=== PATIENT | female | born 1990 | race Two or more races ===

== ENCOUNTER 2017-08-13 09:56 | Inpatient (IN) | payer MEDICAID ==
[~2017-08-13] VITALS: Ht 160 cm; Wt 65.8 kg
[2017-08-13] MEDS ORDERED: IV NS 0.9% 1,000 ML BAG IV ONE (10:30)
[2017-08-13] MEDS ORDERED: VANCOMYCIN 1 GM in IV D5W 250 ML IV ONE ×2 (10:30→16:30)
--- NOTE | 2017-08-13 11:00 | NUR ---
PT CAME IN FOR NECK ABSCESS FROM SELF ADMINISTERED DRUG USE. NOTED ANXIOUS. SEEN BY MD FOR EVAL. SAFETY AND COMFORT MEASURES PROVIDED. WILL MONITOR.
[2017-08-13 11:15] LABS: BASOPHILS # (AUTO) 0.2 /CMM (0.0-0.2); BASOPHILS % (AUTO) 1.9 % (0.0-2.0); EOSINOPHILS % (AUTO) 3.2 % (0.0-6.0); HEMATOCRIT 42 % (33-45); HEMOGLOBIN 14.3 g/dL (11.5-14.8); LYMPHOCYTES # (AUTO) 2.3 /CMM (0.8-4.8); LYMPHOCYTES % (AUTO) 21.5 % (20.0-44.0); MEAN CORPUSCULAR HGB CONC 34 g/dl (31.0-36.0); MEAN CORPUSCULAR VOLUME 87 fL (82-100); MONOCYTES # (AUTO) 0.5 /CMM (0.1-1.30); MONOCYTES % (AUTO) 4.9 % (2.0-12.0); NEUTROPHILS # (AUTO) 7.4 /CMM (1.8-8.9); NEUTROPHILS % (AUTO) 68.5 % (43.0-81.0); PLATELET COUNT (AUTO) 396 /CMM (150-450); RDW COEFFICIENT OF VARIATION 12.3 (11.5-15.0); RED BLOOD CELL COUNT(AUTO) 4.88 MIL/uL (4.0-5.2); WHITE BLOOD COUNT (AUTO) 10.7 K/uL (4.3-11.0)
[2017-08-13 11:24] LABS: CALCIUM, SERUM 8.5 mg/dL (8.5-10.1); CREATININE 0.7 mg/dL (0.6-1.3)
--- NOTE | 2017-08-13 11:30 | NUR ---
UNABLE TO ESTABLISH IV ACCESS. AWARE.
[2017-08-13 11:31] LABS: INR 0.95 (0.85-1.15)
--- NOTE | 2017-08-13 12:50 | NUR ---
Patient is resting comfortably in bed with eyes closed. Easily aroused. VSS
[2017-08-13] MEDS ORDERED: CLINDAMYCIN HCL 150 MG CAPSULE PO ONE (13:00)
--- NOTE | 2017-08-13 14:33 | NUR ---
PICC LINE NURSE AT .
--- NOTE | 2017-08-13 15:00 | NUR ---
PROVIDED PT WITH FOOD TRAY.
[2017-08-13] MEDS ORDERED: IOHEXOL-300 100 ML VIAL IV ONE (15:39)
[2017-08-13] MEDS ORDERED: CT SWABBABLE VALVE TRANS SET 1 EA INFUS.SET MC ONE (15:39)
--- NOTE | 2017-08-13 16:00 | NUR ---
Patient is resting comfortably in bed with eyes closed. Easily aroused. VSS
--- NOTE | 2017-08-13 17:31 | NUR ---
CALLED [facility] BODY STRAIGHTENER WAS PAGED.
[2017-08-13] MEDS ORDERED: ZOLPIDEM TARTRATE 5 MG TABLET PO PRN ×2 (19:00→20:15)
[2017-08-13] MEDS ORDERED: ONDANSETRON HCL/PF 4 MG/2 ML VIAL IVP PRN ×2 (19:00→20:15)
[2017-08-13] MEDS ORDERED: Z GUARD REMEDY 2 OZ OINT TP PRN ×2 (19:00→20:15)
[2017-08-13] MEDS ORDERED: MAGNESIUM HYDROXIDE 30 ML UDC PO PRN ×2 (19:00→20:15)
[2017-08-13] MEDS ORDERED: MORPHINE SULFATE INJ 2 MG/ML DISP.SYRIN IV PRN (19:00)
[2017-08-13] MEDS ORDERED: MAG HYDROX/AL HYDROX/SIMETH 30 ML UDC PO PRN ×2 (19:00→20:15)
[2017-08-13] MEDS ORDERED: ACETAMINOPHEN 325 MG TABLET PO PRN ×2 (19:00→20:15)
[2017-08-13] MEDS ORDERED: HYDROCODONE/APAP 5/325MG 1 EACH TABLET PO PRN ×2 (19:00→20:15)
--- NOTE | 2017-08-13 19:23 | NUR ---
RECEIVED REPORT FROM TREE WALDEN FOR BEATRIS.
[2017-08-13] MEDS ORDERED: LEVOFLOXACIN 500 MG /D5W 100ML 500 MG in PREMIX 1 EA IV SCH ×2 (19:30→21:00)
--- NOTE | 2017-08-13 19:42 | NUR ---
MS 311-1
--- NOTE | 2017-08-13 19:48 | NUR ---
PT NOTED TO BE ASLEEP. VSS.
--- NOTE | 2017-08-13 19:51 | NUR ---
Report given to Peace LEAVITT for continuation of care.
[2017-08-13] MEDS ORDERED: MORPHINE SULFATE INJ 4 MG/ML DISP.SYRIN IV PRN (20:15)
[2017-08-13 20:20] VITALS: BP 127/82
--- NOTE | 2017-08-13 20:20 | NUR ---
RN ADMITTING MS NOTES RECEIVED PATIENT FROM ER VIA [facility], PATIENT AMBULATORY , SAFELY TRANSFERRED TO BED, RESPIRATIONS EVEN AND UNLABORED WITH EQUAL RISE AND FALL OF CHEST, NOTED PATIENT APPEARS TO ANXIOUS STATING " I WANT TO GO SMOKE," MADE AWARE OF UNIT PROTOCOL, PER PATIENT STATES "WHEN MY FRIEND GETS HERE IM GOING TO SMOKE". ONCE AGAIN MADE AWARE OF FACILITY PROTOCOL. VITAL SIGNS TAKEN,127/84,89,20,97.8,96% RA. DENIES ANY PAIN OR DISCOMFORT AT THIS TIME, UPON INITIAL ASSESSMENT NOTED LEFT NECK WITH ABSCESS, NOTED WITH SCANT PURULENT DRAINAGE, SITE CLEANSED AND COVERED WITH DRY DRESSING, REMAINS CLEAN AND INTACT, PICTURE TAKEN AND PLACED IN CHART, PATIENT REFUSED TO BODY SKIN ASSESSMENT, MADE AWARE OF BENEFIT AND RISK , STATING" I DONT HAVE ANYTHING ELSE". ALL BELONGINGS CHECKED WITH PATIENT CONSENT, NOTED CONTRABAND PEPPER SPRAY AND KNIFE IN PURSE , AND CIGARETTES , MADE PATIENT AWARE OF UNABLE TO HAVE ON UNIT AND I WILL BE TAKING THEM PLACING THEM IN A SAFE AT THIS TIME, PATIENT AGREED. CONTRABAND PLACED IN 3W SAFE, CIGARETTES PLACE IN 3W CIGARETTE DRAWER.PATIENT WAS ORIENTED TO STAFF, ROOM AND CALL LIGHT, CALL LIGHT PLACED WITHIN REACH, PATIENT IS AMBULATORY AND USES TOILET FOR VOID NEEDS, PATIENT IS A REGULAR DIET ORDERED PER MD AND FLUIDS SNACKS OFFERED TO PATIENT, PATIENT WAS CHANGED TO HOSPITAL GOWN. RIGHT UPPER AM PICC LINE, SITE INTACT AND PATENT, NO REDNESS NO INFILTRATION PRESENT. MD AWARE OF ADMISSION WITH NEW ORDERS NOTED AND CARRIED OUT. WILL CONTINUE FREQUENT VISUAL CHECKS AND WILL CONTINUE TO MONITOR. PATIENT NOTED LAYING IN BED AT THIS TIME.
[2017-08-13 20:30] VITALS: BP 127/82
--- NOTE | 2017-08-13 20:30 | NUR ---
RN MS NOTES ATTEMPTING TO COMPLETE ADMISSION NOTED PATIENT UNABLE TO ANSWER SOME QUESTIONS.
[2017-08-13] MEDS: CLINDAMYCIN HCL 150 MG CAPSULE PO SCH (22:13)
[2017-08-14] MEDS ORDERED: CLINDAMYCIN HCL 150 MG CAPSULE PO SCH
[2017-08-14] MEDS: CLINDAMYCIN HCL 150 MG CAPSULE PO SCH ×3 (01:00→12:23)
--- NOTE | 2017-08-14 01:56 | NUR ---
RN MS NOTES CALLED AND SPOKE TO [facility] REGARDING CLINDAMYCIN Q6HR SCHEDULED FOR 0100 MADE AWARE 1ST DOSE FOR 21OO GIVEN ORDERED, Q 6 HR HAS NOT PASSED, PER PHARM SKIP DOSE AND CONTINUE NEXT SCHEDULED DOSE.
--- NOTE | 2017-08-14 06:36 | NUR ---
RN MS NOTES PATIENT IN BED SLEEPING BUT EASILY AROUSABLE, RESPIRATIONS EVEN AND UNLABORED WITH EQUAL RISE AND FALL OF CHEST, DENIES ANY PAIN OR DISCOMFORT AT THIS TIME, REMAINED AFEBRILE THROUGHOUT SHIFT,ASSISTED WITH GOWN CHANGE, RIGHT UPPER ARM PICC LINE INTACT AND PATENT NO REDNESS , NO INFILTRATION PRESENT. LEFT NECK ABSCESS REMAINS WITH DRY DRESSING REMAINS INTACT,FLUIDS OFFERED TOLERATED. ALL NEEDS MET, CALL LIGHT KEPT WITHIN REACH , SAFETY MEASURES IN PLACE,WILL CONTINUE TO MONITOR AND ENDORSE TO NEXT SHIFT. Addendum: 08/14/17 at 0648 by MARTHA ELKINS RN CLOSING
--- NOTE | 2017-08-14 07:30 | NUR ---
RN opening NOTES PATIENT IN BED SLEEPING BUT EASILY AROUSABLE, A/OX4. NO ACUTE DISTRESS, NO SOB. DENIED PAIN OR DISCOMFORT AT THE MOMENT. RIGHT UPPER ARM PICC LINE INTACT AND PATENT NO REDNESS , NO INFILTRATION PRESENT. LEFT NECK ABSCESS REMAINS WITH DRY DRESSING REMAINS INTACT,FLUIDS OFFERED TOLERATED. KEPT PATIENT SAFE AND COMFORTABLE. BED IN LOW/LOCKED POSITION, SIDERAILS UPX2, CALL LIGHT IN REACH. WILL CONTINUE TO MONITOR ACCORDINGLY.
[2017-08-14 08:00] VITALS: BP 146/62
--- NOTE | 2017-08-14 09:26 | NUR ---
WOUND CARE CONSULT: PT PRESENTS WITH LEFT NECK ABSCESS. RECOMMEND SURGICAL CONSULT. RECOMMENDATIONS MADE FOR SKIN PROTECTION AND WOUND CARE. DISCUSSED WITH NURSING STAFF. Addendum: 08/14/17 at 0926 by MAUREEN LACEY WNDNU Amended: Links added.
--- NOTE | 2017-08-14 09:45 | NUR ---
RN NOTES PATIENT WENT FOR A SMOKE BREAK ACCOMPANIED BY BUDDY MENA. SMOKING POLICY SIGNED.
--- NOTE | 2017-08-14 11:00 | NUR ---
RN NOTES PATIENT NON COMPLIANT, REMOVED THE DRESSING AND WARM COMPRESS ON LEFT NECK. EDUCATED PATIENT. PATIENT STATED "I JUST WANT TO SMOKE". CALLED BUDDY MENA TO ACCOMPANY PATIENT.
--- NOTE | 2017-08-14 12:30 | NUR ---
TREE ACEVES NOTES PATIENT STATED THAT SHE WANTED TO LEAVE NOW. NOTIFIED SONDRA ROBERTSON NP. PATIENT WANTED TO LEAVE AMA. EXPLAIN THE RISK OF LEAVING AMA, STILL INSISTED THAT SHE WANTED TO LEAVE SAYING "MY FRIENDS ARE ON THEIR WAY TO PICK ME UP!". AMA FORM SIGNED. PATIENT HURRIEDLY LEFT AMA. REFUSED TO WAIT FOR DISCHARGE PAPERWORK AND PRESCRIPTION, DISCHARGE AND BELONGINGS FORMS WASN'T SIGN. REMOVED PICC LINE, APPLIED PRESSURE, NO BLEEDING, NO COMPLICATIONS. REMOVE NAME BAND. REFUSED PHOTOS. ACCOMPANIED BY BUDDY MENA TO THE LOBBY.
--- NOTE | 2017-08-14 12:45 | NUR ---
Social service consult requested by Dr. Valero for drug use. Pt. is a 26 year old female who was admitted to [facility] for left neck abscess. Pt. 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 SW was going to assess pt., however was informed by [facility] [address] MIGNON Davison that pt. left AMA.
== END 2017-08-14 12:30 | disposition left against medical advice (07) | DRG 383 ==
LOC: ER 09:57 → MED 20:39
PROVIDERS: ADMIT Internal Medicine; ATTEND Internal Medicine
PROC: 02HV33Z Insertion of Infusion Device into Superior Vena Cava, Percutaneous Approach (ICD-10-PCS; principal; 2017-08-13)
PROC: B548ZZA Ultrasonography of Superior Vena Cava, Guidance (ICD-10-PCS; principal; 2017-08-13)
DX: L02.11 Cutaneous abscess of neck (principal); F11.20 Opioid dependence, uncomplicated; L03.221 Cellulitis of neck; Z91.14 Patient's other noncompliance with medication regimen; F17.200 Nicotine dependence, unspecified, uncomplicated; Z88.0 Allergy status to penicillin
CPT/HCPCS: 36415; 36569; 70491-TC; 71045-TC; 80048-TC; 84703-TC; 85025-TC; 85730-TC; 87040-TC; A4216; A6253; C1751; J1956; J3370; J7030; J7060; Q9967; Z7610